=== PATIENT | female | born 1990 | race Two or more races ===

== ENCOUNTER 2024-10-25 11:46 | Inpatient (IN) | payer MEDICAID, SELFPAY ==
[2024-10-25 12:51] VITALS: BP 124/83; PULSE 75; RESP 17; TEMP 36.8
--- NOTE | 2024-10-25 13:01 | XR_ITS ---
Examination: Complete OB ultrasound greater than 14 weeks Date and time of exam: October 25, 2024 1434 hrs. Indications: Labor induction, unknown size and dates, diagnosis post dates Findings: Viable intrauterine single fetus with single amniotic sac presentation cephalic Cardiac motion 126 BPM Placenta anterior grade 3 Umbilical cord insertion 3 vessel Amniotic fluid index 7.9 cm spine maternal right Cervix 4.0 cm Ovaries obscured by bowel gas. Composite estimated gestational age based on BPD, head circumference, abdominal circumference, femur length is 39 weeks 0 days Estimated weight 3638 g. Survey of intracranial anatomy, spinal anatomy, abdominal anatomy, four-chamber heart performed with no abnormalities identified. Impression: Viable intrauterine gestation cephalic presentation Estimated weight 3638 g.
[2024-10-25 13:34] LABS: Basophils % (Auto) 0 % (0-2.5); Eosinophils % (Auto) 0 % (0-10); Hematocrit 33.4 % (36.0-46.0); Hemoglobin 11.3 g/dL (12.0-16.0); Immature Granulocytes % (Auto) 0 % (0-0); Immature Granulocytes Auto 0.02 Thou/mm3 (0.00-0.00); Lymphocytes # (Auto) 1.8 Thou/mm3 (1.0-4.8); Lymphocytes % (Auto) 24 % (10-50); Mean Corpuscular HGB Conc 33.8 g/dl (31.0-37.0); Mean Corpuscular Hemoglobin 30.3 pg (25.0-35.0); Mean Corpuscular Volume 90 fL (80-100); Monocytes # (Auto) 0.5 Thou/mm3 (0.0-0.8); Monocytes % (Auto) 7 % (0-12); Neutrophils # (Auto) 5.2 Thou/mm3 (1.8-7.7); Neutrophils % (Auto) 68 % (37-80); Nucleated Red Blood Cell % 0 /100 WBC (0); Platelet Count 308 Thou/mm3 (140-440); RDW Standard Deviation 45.1 fL (36.4-46.3); Red Blood Count 3.73 Miln/mm3 (4.00-5.20); White Blood Count 7.6 Thou/mm3 (3.6-11.0)
[2024-10-25 14:10] LABS: Syphilis Nonreactive (Nonreactive)
[2024-10-25] MEDS: MISOPROSTOL 50 mCg TABLET PO ×2 (16:15→20:24)
--- NOTE | 2024-10-25 16:33 | PD.LDHP ---
Documentation for date of: 10/25/24 OB Labor/Induct. HPI History of Present Illness Chief complaint: 40/6/7 weeks IUP : 5 Para: 3 Term pregnancies: 3 pregnancies: 0 Living children: 3 History of Abortions: Spontaneous and Elective: 1 History of Vaginal deliveries: 3 History of sections: No History of : No Date of last menstrual period: 01/24/24 BETHANIE: 10/25/24 Gestational Age (weeks): 40 Gestational age based on last menstrual period: 39 Indication for induction: post dates and history of rapid labor History of present illness: US EDC10/19/2024 EDC LMP 10/30/2024. Hx of rapid labors. Hx of Multiple Sclerosis this History of Present Adequate Care: Yes Ultrasounds: normal mid trimester US Narrative: normal 3 hr GTT after screen 183 Labs Maternal Blood Type: A Pos Labs: Negative: Hepatitis B, HIV, Chlamydia, Gonorrhea and Group Beta Strep Review of Systems Review of Systems Systems Reviewed: All systems reviewed, normal except as documented Constitutional Constitutional: Reports system reviewed and no additional complaints, except as documented Eyes Eyes: Reports system reviewed and no additional complaints, except as documented ENT Ears, Nose, Mouth, and Throat: Reports system reviewed and no additional complaints, except as documented Cardiovascular Cardiovascular: Reports system reviewed and no additional complaints, except as documented Respiratory Respiratory: Reports system reviewed and no additional complaints, except as documented Gastrointestinal Gastrointestinal: Reports system reviewed and no additional complaints, except as documented Genitourinary Genitourinary: Reports system reviewed and no additional complaints, except as documented Comments: hx of bladder and urethral repair at 16 months Musculoskeletal Comments: MS affecting balance and ability to control legs. Rt leg worse than left leg. Upper body unaffected with normal exam Neurologic Comments: MS using walker for balance Past Medical History Past Medical History NEUROLOGIC: Positive Neurological Disorders MUSCULOSKELETAL: Positive Musculoskeletal Disorders Surgical History SURGICAL: Negative Section OTHER SURGICAL HX: bladder and urethral repair at 16 months Meds Home Medications and Allergies Allergies Allergy/AdvReac Type Severity Reaction Status Date / Time azithromycin Allergy Severe Hives Verified 10/25/24 12:29 OB Exam Physical Exam Vital signs: Pulse BP 75 124/83 10/25/24 12:51 10/25/24 12:51 Routine HEENT Exam Head: Present normocephalic Eye: Present EOMI, PERRL and normal accommodation Routine Neck Exam Neck: Present supple and full ROM Routine Respiratory Exam Comments: clear Routine Cardiovascular Exam Cardiovascular: Present RRR Routine Abdominal Exam Abdominal: Present soft and normoactive bowel sounds Comments: 36 cm FH Detailed Labor and Delivery Exam Dilation (cm): 1 Effacement (%): 20 Cervix position: posterior station: -4 Consistency: firm Presentation: Vertex Membranes: intact Tachysystole: No Routine Extremities Exam Comments: left leg swings with poorer control than rt OB Results Labs 10/25/24 12:30 Labs: Short CBC 10/25/24 Range/Units 12:30 WBC 7.6 (3.6-11.0) Thou/mm3 Hgb 11.3 L (12.0-16.0) g/dL Hct 33.4 L (36.0-46.0) % Plt Count 308 (140-440) Thou/mm3 Impressions Impression: term IUP for induction
[2024-10-25 18:27] LABS: Amphetamine/Metham Scrn,Ur OB Negative (Negative); Benzoylecgonine Screen, Ur OB Negative (Negative); Opiate Screen,Urine OB Negative (Negative); THC Screen,Urine OB Positive (Negative)
[2024-10-25 18:28] LABS: THC U Confirm* See Sep Rpt
[2024-10-25 19:00] VITALS: RESP 16; TEMP 36.9
[2024-10-25 19:02] VITALS: BP 110/71; PULSE 76
[2024-10-25 22:22] VITALS: BP 117/59; PULSE 71; RESP 16; TEMP 36.9
[2024-10-25 23:20] VITALS: RESP 16; TEMP 36.9
[2024-10-25 23:25] VITALS: BP 111/69; PULSE 78
[2024-10-26] VITALS (81 sets, daily range): BP systolic 115–152; BP diastolic 65–103; PULSE 76–111; RESP 16–18; TEMP 36.6–37.1; O2SAT 92–100; BMI 26.6
[2024-10-26] MEDS: MISOPROSTOL 50 mCg TABLET PO ×4 (00:18→22:10)
[2024-10-26] MEDS: RINGERS LACTATED 1000 ML 1,000 ML 100 ML IV (06:19)
--- NOTE | 2024-10-26 16:42 | PD.LDPN ---
Documentation for date of: 10/26/24 OB Labor Progress Note Pain Control Comments: Now 12 hours following last cytotec. Pt rested well. MD cervical exam shows 3 cm, posterior. -3 vtx station, moderate consistancy, 80 % effacement. Biships score now 6. Will begin next round of PO cytotec and plan pitocin augmentation as needed Pelvic Exam Dilation (cm): 1 Effacement (%): 20 station: -4
[2024-10-27] VITALS (140 sets, daily range): BP systolic 108–140; BP diastolic 62–90; PULSE 67–110; RESP 18–22; TEMP 36.6–37.4; O2SAT 91–100
[2024-10-27] MEDS: RINGERS LACTATED 1000 ML 1,000 ML 100 ML IV ×2 (06:30→14:23)
[2024-10-27] MEDS: OXYTOCIN in NS 30 units 30 UNIT/500 ML BAG IV (09:07)
[2024-10-27] MEDS: OXYTOCIN in NS 20 units 20 UNIT/1,000 ML BAG 125 UNIT IV (16:45)
[2024-10-27] MEDS: IBUPROFEN TAB 400 MG TABLET 800 MG PO (17:00)
--- NOTE | 2024-10-27 17:16 | PD.LDPN ---
Documentation for date of: 10/27/24 OB Labor Progress Note Pain Control Pain control: tolerating well Pelvic Exam Dilation (cm): 5-6 Effacement (%): 80 station: -2 Amniotic membrane status: Bulging Comments: Patient is a 33-year-old -0-0-3 I took over care this morning at 7 AM. She is being induced for multiple sclerosis with a flare where her right leg sometimes works and sometimes does not. She is on no medications for her MS at this time. Patient has a walker. She was admitted October 25 in the afternoon and has been induced with Cytotec.She is kicking into labor now and this morning is 5 to 6 cm she does not desire epidural. She had an epidural with her first 2 babies the third baby was literally born in an ambulance. Contractions Monitor mode: External Contraction intensity: Mild Status status: Category l Assessment and Plan Assessment: induction ongoing Plan OB labor note: begin Pitocin augmentation
--- NOTE | 2024-10-27 17:20 | PD.LDDELS ---
Data ([facility]) Data Hx Section: No Maternal Blood Type: A Pos Rubella Titre: Positive RPR: Non-reactive Labs: Negative: RPR, Hepatitis B, HIV, Chlamydia, Gonorrhea and Group Beta Strep : 5 Term: 3 : 0 Livin : 0 Delivery Data ([facility]) Labor Data Stimulated/Augmented: Yes Induction: Yes Method: Cytotec (Cytotec followed by oxytocin.) ROM Date: 10/27/24 Rupture Type: SROM Amniotic Fluid: Clear Delivery Data EDC: 10/19/24 EDC calculated by:: LMP/early US confirmation Delivery Date: 10/27/24 Gestational age (weeks): 41 Gestational age (days): 1 Length stage 2 (minutes): 5 Length stage 3 (minutes): 2 Delivered by: Corinne Galvan [employer] at delivery: No Support person(s) at delivery: none Delivery Method Delivery: Vaginal Delivery Type: Spontaneous Presentation: Vertex Position: OA Anesthesia Type Primary Anesthesia: None Secondary Anesthesia: None Placenta Placenta Delivery: Spontaneous Placenta Cultures Obtained: No Placenta Sent for Examination: No Cord Sample: Cord Blood Obtained Episiotomy Episiotomy: None EBL Estimated blood loss (ml): 100 Umbilical Cord Umbilical Vessels: 3 Body Cord: x1 Loosely Complications Complications: None [place] Data ([facility]) Data Infant Gender: Male
[2024-10-27] MEDS: BENZO/LANO/ALOE (Dermoplast) 60 GM CAN 1 SPRAY TOP (18:37)
[2024-10-28 00:37] LABS: Basophils % (Auto) 0 % (0-2.5); Eosinophils % (Auto) 0 % (0-10); Hematocrit 28.3 % (36.0-46.0); Hemoglobin 9.5 g/dL (12.0-16.0); Immature Granulocytes % (Auto) 0 % (0-0); Immature Granulocytes Auto 0.03 Thou/mm3 (0.00-0.00); Lymphocytes % (Auto) 16 % (10-50); Mean Corpuscular HGB Conc 33.6 g/dl (31.0-37.0); Mean Corpuscular Hemoglobin 30.4 pg (25.0-35.0); Mean Corpuscular Volume 90 fL (80-100); Monocytes % (Auto) 8 % (0-12); Neutrophils # (Auto) 9.3 Thou/mm3 (1.8-7.7); Neutrophils % (Auto) 75 % (37-80); Nucleated Red Blood Cell % 0 /100 WBC (0); Platelet Count 212 Thou/mm3 (140-440); RDW Standard Deviation 45.8 fL (36.4-46.3); Red Blood Count 3.13 Miln/mm3 (4.00-5.20); White Blood Count 12.4 Thou/mm3 (3.6-11.0)
[2024-10-28 04:45] VITALS: BP 125/87; PULSE 76; RESP 16; TEMP 36.8; O2SAT 97
[2024-10-28 08:00] VITALS: BP 128/81; PULSE 83; RESP 17; TEMP 36.6; O2SAT 97
--- NOTE | 2024-10-28 09:19 | ESDS_ITS ---
DS: Providers Provider Date of admission: 10/25/24 11:46 Primary care physician: Physician No Primary/Family Admitting Provider: Edward Lomeli MD Attending Provider on Admission: Corinne Galvan MD Consults: 10/27/24 17:27 Referral Routine Comment: Attending Provider on DC: Brie Romero MD Discharging Provider: Brie Romero MD DS: Diagnosis Discharge Diagnosis (1) Vaginal delivery: Status: Acute (2) Multiple sclerosis affecting in third trimester: Status: Acute (3) anemia: Status: Acute Problem List Completed Was Problem List Reviewed/Reconciled?: Yes Summary/Hosp Course Brief History: US EDC10/19/2024 EDC LMP 10/30/2024. Hx of rapid labors. Hx of Multiple Sclerosis this Danielle is a 33yo [id number] s/p uncomplicated at term after undergoing IOL, delivering on 10/27. She has had an uncomplicated course, meeting all milestones and feels ready for discharge home. She is ambulating without lightheadedness (uses a walker for balance issues related to MS which is at baseline), tolerating regular diet no n/v, spontaneously voiding without issue. She has no chest pain or shortness of breath. No fevers or chills. Minimal discomfort. Vitals normal, benign exam. Hemodynamically stable with no evidence of infection. PP Hgb 9.5. Rx iron. Status at Discharge Functional status at discharge: independent ambulation Overall status at discharge: patient is back to baseline Time Spent with Patient Time attestation: Total time spent providing and/or coordinating discharge services: Exam Vital Signs Temp Pulse Resp BP Pulse Ox O2 Del Method 98.2 F 76 16 125/87 H 97 Room Air 10/28/24 04:45 10/28/24 04:45 10/28/24 04:45 10/28/24 04:45 10/28/24 04:45 10/28/24 04:45 Narrative Exam General: well developed, well nourished, no acute distress, conversant Cardiac: normal heart rate Lungs: breathing without distress Abdomen: soft, post-gravid, non-tender, no rebound or guarding, Fundus firm at u-3cm. Extremities: no pain with palpation of calves, trace edema of BLE Discharge Plan Plan Patient Disposition: HOME (Self Care) Patient condition on transfer: Stable Prescriptions/Referrals Prescriptions/Med Rec: New ferrous sulfate 325 mg (65 mg iron) tablet 325 mg PO QDAY Qty: 30 0RF Continued Vitamin 27 mg iron- 800 mcg tablet Referrals: No Primary/Family,Physician [Primary Care Provider] - Patient/Caregiver Discharge Instructions Discharge Activity: activity as tolerated and other Other Discharge Activity Instructions:: vaginal rest and no heavy lifting more than 10 pounds for 6 weeks. Other Discharge Diet Instructions: Regular Education Materials: After a Vaginal Print Language: Bangladeshi Activity Restrictions/Additional Instructions: Follow up in 4 weeks for visit, call clinic for appointment. Follow up with neurology as scheduled. Stand Alone Forms: [facility] Award Info., Patient Portal Info Letter Discharge Order Discharge Orders: Discharge (Routine); Ordered 10/28/24 Ordered By: Brie Romero Planned Discharge Date 10/28/24
[2024-10-28 11:57] VITALS: BP 127/82; PULSE 88; RESP 17; TEMP 36.7; O2SAT 97
--- NOTE | 2024-10-28 14:32 | PC.CC ---
Danielle Willis is a 33-year-old female admitted for labor and delivery care. Physician Office Secretary made contact with Pt at bedside to complete ob assessment and discuss discharge disposition. Role and reason for the contact was explained to Pt. Demographic information was verified. Pt is independent with all ADLs, no source of DME. PCP is [facility]. At time of discharge patient will return home, family will provide transportation. Mother plans on breast feeding, has car seat, and all supplies for baby. Mother denies DV, no CPS. Mother reports support system provided by extended family and Grandmother. Discharge Plan: Home PCP: [facility]
[2024-10-28 16:00] VITALS: BP 130/79; PULSE 82; RESP 18; TEMP 36.8; O2SAT 97
== END 2024-10-28 17:37 | disposition home or self-care (01) | DRG 560 ==
LOC: S4SX 10-27 17:35 → S4NX 10-27 19:26
PROVIDERS: Admitting Provider Obstetrics & Gynecology; Visit Provider Obstetrics & Gynecology
DX: O48.0 Post-term pregnancy (principal); Z3A.40 40 weeks gestation of pregnancy; Z37.0 Single live birth; O69.82X0 Labor and delivery complicated by other cord entanglement, without compression, not applicable or unspecified; O99.354 Diseases of the nervous system complicating childbirth; G35 Multiple sclerosis; Z88.1 Allergy status to other antibiotic agents; O90.81 Anemia of the puerperium; D64.9 Anemia, unspecified
CPT/HCPCS: 36415; 59409; 76805; 80307; 85025; 86780; 86850; 86900; 86901; 94762; J2590; J7120; A9270